=== PATIENT | female | born 1960 | race American Indian/Alaskan Native ===

== ENCOUNTER 2019-01-11 09:57 | Day surgery (SDC) | payer BC ==
[~2019-01-11 09:57] MED LIST: NACL 0.9% 1000 ML 1,000 ML IV SCH
[2019-01-11] MEDS ORDERED: XYLOCAINE 2% INFILTRATI ONE (12:16)
[2019-01-11] MEDS ORDERED: DIPRIVAN 10 MG/ML IV ONE (12:17)
--- NOTE | 2019-01-11 12:42 | Short Stay Summary ---
Short Stay Documentation Date of service: 01/11/19 - History H&P: obtained from office - Allergies and Medications Current Medications: Allergies No Known Allergies Allergy (Verified 01/10/19 13:06) Home Medications Medication Instructions Recorded Confirmed Last Taken Type Atenolol 1 tab PO DAILY 01/10/19 01/10/19 01/10/19 History Lipitor 40 mg PO DAILY 01/10/19 01/10/19 01/10/19 History metFORMIN 500 mg PO DAILY 01/10/19 01/10/19 01/10/19 History Active Medications Sodium Chloride (Nacl 0.9% 1000 Ml) 1,000 mls @ 50 mls/hr IV DIRECT JOHN Last Admin: 01/11/19 10:43 Dose: 50 mls/hr Documented by: - Brief post op/procedure progress note Date of procedure: 01/11/19 Pre-op diagnosis: GERD, personal history of colon polyps Post-op diagnosis: other (Normal EGD and colonoscopy) Procedure: EGD and colonoscopy Anesthesia: MAC Findings: 1. Normal EGD 2. Normal colonoscopy Surgeon: YOLY LUNDY Estimated blood loss: none Pathology: none Condition: stable - Disposition Condition at discharge: Good Disposition: DC-01 TO HOME OR SELFCARE Short Stay Discharge Plan Diet: regular Follow up with: RICKIE CRUMP MD [Primary Care Provider] - 7 Days
[2019-01-11 13:27] VITALS: BP 158/74
--- NOTE | 2019-01-11 14:16 | Operative Report ---
PROCEDURE: Colonoscopy and upper endoscopy. PREOPERATIVE DIAGNOSES: Chronic gastroesophageal reflux disease and personal history of colon polyps. POSTOPERATIVE DIAGNOSES: Normal upper endoscopy and normal colonoscopy. SEDATION: MAC by Anesthesia. HISTORY: The patient is a 58-year-old woman who has a chronic history of GERD and undergoing upper endoscopy to rule out Rausch's esophagus. She also has a personal history of tubular adenomas in 2013. DESCRIPTION OF PROCEDURE: Procedure, indications, risks, and benefits were explained then consent was obtained. The patient was placed in left lateral decubitus position and sedated. Fuji video upper endoscope was passed through the mouth and oropharynx into the descending duodenum. Scope was then gradually withdrawn with close inspection of mucosa. The patient was subsequently rotated and a colonoscopy was performed using a Fuji video colonoscope. This was passed with minimal difficulty to the cecum identified by the ileocecal valve and the appendiceal orifice. Scope was then gradually withdrawn with close inspection of the mucosa. Prep was good. FINDINGS: 1. Normal esophagus with sharp Z-line located at 37 cm from the incisors. 2. Normal appearing gastric antrum, fundus, body, and cardia. 3. Normal appearing duodenal bulb and duodenum. 4. Visualized colonic mucosa was normal appearing with no evidence of mass lesions, vascular lesions or inflammation. No polyps were identified. The patient tolerated both procedures well without immediate complications. IMPRESSION: 1. Normal upper endoscopy. 2. Normal colonoscopy. PLAN: 1. Continue proton pump inhibitors and diet and lifestyle changes for GERD. 2. Repeat colonoscopy in 5 years. [facility]# [id number] C/NTS
== END 2019-01-11 09:58 | disposition home or self-care (01) ==
LOC: GIO 09:57
PROVIDERS: ATTEND Internal Medicine Gastroenterology
DX: Z12.11 Encounter for screening for malignant neoplasm of colon (principal); K21.9 Gastro-esophageal reflux disease without esophagitis; R12 Heartburn; E78.00 Pure hypercholesterolemia, unspecified; I10 Essential (primary) hypertension; F41.9 Anxiety disorder, unspecified; Z90.49 Acquired absence of other specified parts of digestive tract; Z98.51 Tubal ligation status; Z98.890 Other specified postprocedural states; Z86.010 Personal history of colon polyps; Z79.899 Other long term (current) drug therapy; Z79.84 Long term (current) use of oral hypoglycemic drugs
CPT/HCPCS: 43235; 45378; 82962; J2704; J7030

== ENCOUNTER 2019-05-19 08:35 | Outpatient (CLI) | payer BC ==
--- NOTE | 2019-05-19 10:42 | XRay Report ---
BILATERAL CALCANEUS, 2 VIEWS INDICATION: [id number])Other specific joint derangements of right ankle, not els. COMPARISON: None. IMPRESSION: No acute osseous or soft tissue abnormality. Moderate bilateral plantar spurs are josé ntified measuring 7 mm in length on the right and 4 mm in length on the left. Focal spurring at the i nsertion site of the Achilles tendons is also noted bilaterally. Signer Name: Shane Abdalla Jr, MD Signed: 05/19/2019 10:38 AM Workstation Name: [id number]
== END 2019-05-19 08:36 | disposition home or self-care (01) ==
LOC: XRAY 08:35
PROVIDERS: ATTEND Podiatrist Foot & Ankle Surgery
DX: M24.871 Other specific joint derangements of right ankle, not elsewhere classified (principal); M76.62 Achilles tendinitis, left leg; M77.32 Calcaneal spur, left foot; M77.31 Calcaneal spur, right foot; I10 Essential (primary) hypertension; E78.00 Pure hypercholesterolemia, unspecified; K21.9 Gastro-esophageal reflux disease without esophagitis; F41.9 Anxiety disorder, unspecified